=== PATIENT | male | born 1960 | race Caucasian/White ===

== ENCOUNTER 2016-09-04 10:34 | Day surgery (SDC) | payer OTHER ==
[2016-08-29 14:23] LABS: HEMATOCRIT 47.2 % (42.0-52.0); HEMOGLOBIN 16.1 g/dL (14.0-18.0); MCHC 34.1 g/dL (33-37); MCV 87.9 FL (81-99); MPV 10.8 FL (7.4-10.4); RBC 5.37 XMIL (4.7-6.1)
[2016-08-29 14:40] LABS: AGAP 12; BUN 14 mg/dL (8-22); CHLORIDE 103 mmol/L (98-107); COSMO 280; POTASSIUM 3.8 mmol/L (3.5-5.1); SODIUM 140 mmol/L (136-145); TCO2 25 mmol/L (25-35)
--- NOTE | 2016-08-29 16:50 | EKG Report ---
Test Performed on : 08/29/2016 1:55:09 PM Test Reason : PAT Blood Pressure : / mmHG Vent. Rate : 076 BPM Atrial Rate : 076 BPM P-R Int : 160 ms QRS Dur : 094 ms QT Int : 366 ms P-R-T Axes : 010 028 -09 degrees QTc Int : 411 ms Normal sinus rhythm. Possible Inferior infarct , age undetermined Abnormal ECG No previous ECGs available Confirmed by Panda Estrella MD ([id number]) on 08/31/2016 12:34:05 PM
[2016-09-04] MEDS ORDERED: REGLAN ONE (11:14)
[2016-09-04] MEDS ORDERED: PEPCID ONE (11:14)
[2016-09-04] MEDS ORDERED: LR 1,000 ML ONE ×2 (11:14→15:19)
[2016-09-04] MEDS ORDERED: KEFZOL 2 GM/D5W 50 ML ONE (11:14)
[2016-09-04] MEDS ORDERED: MARCAINE 0.25% PF ONE (13:27)
[2016-09-04] MEDS ORDERED: DIPRIVAN 1% ONE (14:43)
[2016-09-04] MEDS ORDERED: FENTANYL ONE (14:43)
[2016-09-04] MEDS ORDERED: ZOFRAN ONE (15:18)
[2016-09-04] MEDS ORDERED: OFIRMEV 1000 MG/ISOTONIC SOLN 100 ML ONE (15:19)
[2016-09-04] MEDS ORDERED: DECADRON ONE (15:19)
[2016-09-04] MEDS ORDERED: XYLOCAINE-MPF 2% ONE (15:19)
[2016-09-04 15:45] VITALS: BP 135/88
--- NOTE | 2016-09-04 17:39 | OPERATIVE NOTE ---
PROCEDURE DATE: 09/04/2016 PREOPERATIVE DIAGNOSIS: Right medial meniscal tear with underlying osteoarthritis. 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 PROCEDURE: Arthroscopy of the right knee with partial medial meniscectomy, debridement of chondromalacia and resected medial plica. SURGEON: Owen Goldsmith MD. RECORDER GRAVITY PROSPECTING: Nehemias Gar RN. ANESTHESIA: General. IV FLUIDS: 1400 mL lactated Ringer's. ESTIMATED BLOOD LOSS: 5 mL. TOURNIQUET TIME: 35 minutes at 350 mmHg. COMPLICATIONS: None. INDICATION: The patient is a pleasant 56-year-old male who has had a pains and discomfort in the right knee over the last several weeks. An MRI was subsequently obtained and revealed an underlying tear of the medial meniscus along with some underlying degenerative arthritis along the patellofemoral joint medial compartment. Given the patient's continued pain and discomfort, recommendations to proceed with arthroscopy was offered. Risks and benefits of surgeries were explained, including risks of anesthesia, , bleeding, infection, failure to relieve pain, postoperative stiffness, nerve injury, blood clots, and other imponderables. All questions were answered. Patient and family wished to surgery. DETAILS OF OPERATION: Patient was taken to the operating room and placed supine on the operating table. Once adequate anesthesia was obtained, patient's right lower extremity was subsequently prepped and draped in the usual sterile fashion. Esmarch was used to exsanguinate the right lower extremity. The tourniquet was inflated to 350 mmHg. A standard superior medial incision was made with an 11 blade. A blunt tip trocar with overlying cannula was introduced. Inflow tubing was connected to portal. Standard anteromedial and anterolateral portals were made. Inspection of the patellofemoral joint revealed a large grade 3 chondromalacia of the patellofemoral joint. Debridement of the chondromalacia was conducted. Did have evidence of medial plica. This was resected. There is no evidence of a loose body in the medial gutter. Attention then turned to the medial compartment. Did have evidence of grade 3 chondromalacia of the medial femoral condyle and this was lightly debrided as well. Did have evidence of medial meniscal tear involving the posterior horn and extending to the middle horn. The shaver was then introduced for initial debridement. This was followed by a meniscal biter and contouring was conducted with a shaver and removal of meniscal debris. There appeared to be appeared to be stable remaining meniscus. The intercondylar notch revealed an intact ACL. Lateral compartment revealed no significant chondromalacia. Had an intact lateral meniscus. Lateral gutter had no evidence of loose body. The arthroscope was transferred to the anteromedial portal and further debridement of the contouring of the middle horn was conducted to the anterolateral portal. Final inspection revealed stable remaining meniscus. The arthroscope was removed. 3-0 nylon was used to close the skin, 0.25% Marcaine without epinephrine was injected. Adaptic, sterile 4 x 4, Webril, and Silas wrap applied to the right lower extremity. The patient tolerated the procedure well and transferred to recovery room in stable condition.
== END 2016-09-04 15:49 | disposition home or self-care (01) ==
LOC: OPS 10:34
PROVIDERS: ATTEND Orthopaedic Surgery Adult Reconstructive Orthopaedic Surgery
DX: S83.241A Other tear of medial meniscus, current injury, right knee, initial encounter (principal); M94.261 Chondromalacia, right knee; M17.11 Unilateral primary osteoarthritis, right knee; M67.51 Plica syndrome, right knee; I10 Essential (primary) hypertension
CPT/HCPCS: 80048; 85027; 93005; 93010; J0131; J0690; J1100; J2405; J3010; J7120; S0020